=== PATIENT | male | born 1980 | race Caucasian/White ===

== ENCOUNTER 2017-07-05 19:50 | Inpatient (IN) | payer OTHER ==
[~2017-07-05] VITALS: Ht 182.9 cm; Wt 94.3 kg
[2017-07-05] MEDS ORDERED: DICY20TA (20:45)
[2017-07-05] MEDS ORDERED: MOXIFLOXACIN H400 MG (20:45)
[2017-07-05] MEDS ORDERED: PROTONIX40 MG (20:45)
[2017-07-09] MEDS ORDERED: FLAGYL500MG PO (18:10)
[2017-07-09] MEDS ORDERED: PANTOPRAZOLE SO40 MG PO (18:10)
[2017-07-09] MEDS ORDERED: Intestinex CAP PO (18:10)
[2017-07-09] MEDS ORDERED: LEVAQUIN500 MG PO (18:10)
== END 2017-07-09 18:26 | disposition home or self-care (01) | DRG 392 ==
LOC: ER 19:50 → MEDI 07-06 14:09
DX: K57.32 Diverticulitis of large intestine without perforation or abscess without bleeding (principal); E86.0 Dehydration; K21.9 Gastro-esophageal reflux disease without esophagitis; K29.50 Unspecified chronic gastritis without bleeding; Z88.0 Allergy status to penicillin; Z91.013 Allergy to seafood

== ENCOUNTER 2017-09-10 17:07 | Emergency (ER) | payer OTHER ==
[~2017-09-10] VITALS: Ht 182.9 cm; Wt 89.8 kg
[~2017-09-10 17:07] MED LIST: DICY20TA; FLAGYL500MG PO; Intestinex CAP PO; LEVAQUIN500 MG PO; MOXIFLOXACIN H400 MG; PANTOPRAZOLE SO40 MG PO; PROTONIX40 MG
== END 2017-09-10 21:57 | disposition home or self-care (01) ==
LOC: ER 17:07
DX: K57.90 Diverticulosis of intestine, part unspecified, without perforation or abscess without bleeding (principal); R10.32 Left lower quadrant pain

== ENCOUNTER 2018-07-17 21:33 | Inpatient (IN) | payer OTHER ==
[~2018-07-17] VITALS: Ht 182.9 cm; Wt 95.3 kg
== END 2018-07-22 18:16 | disposition home or self-care (01) | DRG 392 ==
LOC: ER 21:33 → SEC-K 07-18 09:39 → MEDJ 07-18 09:39
PROVIDERS: ADMIT Internal Medicine
DX: K57.32 Diverticulitis of large intestine without perforation or abscess without bleeding (principal); Z88.0 Allergy status to penicillin; K29.50 Unspecified chronic gastritis without bleeding; E86.0 Dehydration; K21.9 Gastro-esophageal reflux disease without esophagitis

== ENCOUNTER 2021-07-31 10:17 | Outpatient (CLI) | payer OTHER | END 2021-07-31 10:53 | disposition home or self-care (01) | LOC: LAB 10:17 | PROVIDERS: ATTEND Surgery | DX: I10 Essential (primary) hypertension (principal); K57.32 Diverticulitis of large intestine without perforation or abscess without bleeding; R19.4 Change in bowel habit; R19.5 Other fecal abnormalities; R10.32 Left lower quadrant pain ==

== ENCOUNTER 2021-08-03 10:30 | Inpatient (IN) | payer OTHER ==
[~2021-08-03] VITALS: Ht 182.9 cm; Wt 92.5 kg
[2021-08-11] MEDS ORDERED: GASTRACE CAPSU1 EACH (08:35)
[2021-08-11] MEDS ORDERED: RESTORA RX CAP1 EACH (08:35)
[2021-08-11] MEDS ORDERED: MONTELUKAST SOD10 MG (08:35)
[2021-08-11] MEDS ORDERED: OMEGA-3 ACID ETH1 GM (08:35)
[2021-08-11] MEDS ORDERED: INTESTINEX680 M1 (08:35)
[2021-08-13] MEDS ORDERED: PERCOCET 5-3251 EACH PO (11:04)
[2021-08-13] MEDS ORDERED: INTESTINEX680 M1 PO (11:04)
[2021-08-13] MEDS ORDERED: HYOSCYAMINE0.125 M1 SL (11:04)
== END 2021-08-13 13:43 | disposition home or self-care (01) | DRG 331 ==
LOC: O/R 08-10 06:00 → SURH 08-10 10:30 → SURG 08-10 13:45 → SURH 08-10 15:00
PROVIDERS: ADMIT Surgery; ATTEND Surgery
PROC: 0DBP4ZZ Excision of Rectum, Percutaneous Endoscopic Approach (ICD-10-PCS; 2021-08-10)
PROC: 0DTN4ZZ Resection of Sigmoid Colon, Percutaneous Endoscopic Approach (ICD-10-PCS; principal; 2021-08-10 15:00)
DX: K57.32 Diverticulitis of large intestine without perforation or abscess without bleeding (principal); R19.4 Change in bowel habit; R19.5 Other fecal abnormalities; R10.32 Left lower quadrant pain; K21.9 Gastro-esophageal reflux disease without esophagitis

== ENCOUNTER 2022-09-16 09:35 | Emergency (ER) | payer OTHER ==
[~2022-09-16] VITALS: Ht 182.9 cm; Wt 95.7 kg
[~2022-09-16 09:35] MED LIST changes: +GASTRACE CAPSU1 EACH; +HYOSCYAMINE0.125 M1 SL; +INTESTINEX680 M1; +INTESTINEX680 M1 PO; +MONTELUKAST SOD10 MG; +OMEGA-3 ACID ETH1 GM; +PERCOCET 5-3251 EACH PO; +RESTORA RX CAP1 EACH
[2022-09-16] MEDS ORDERED: RESTORA RX CAP1 EACH (09:55)
[2022-09-16] MEDS ORDERED: FIBER625 MG PO (09:56)
[2022-09-16] MEDS ORDERED: FLUTICASONE-SA1 EAC6 IH (09:57)
[2022-09-16] MEDS ORDERED: SPIRIVA RESPIMAT4 G1 IH (09:58)
== END 2022-09-16 11:23 | disposition left against medical advice (07) ==
LOC: ER 09:35
DX: Z53.21 Procedure and treatment not carried out due to patient leaving prior to being seen by health care provider (principal)